=== PATIENT | male | born 1990 | race Caucasian/White ===

== ENCOUNTER 2017-01-26 02:31 | Emergency (ER) | payer BC ==
--- NOTE | 2017-01-26 05:33 | ER ---
ADMIT: 01/26/2017 RM/LOC: ER [facility] MR#: [id number] [address] [id number] JIGNA DONALD [address] [place] [address] Emergency Room Report SEX: M AGE: 26 : 1990 DATE: 01/26/2017 HISTORY OF PRESENT ILLNESS: The patient is a 26-year-old male with no past medical history, came to the ER with chief complaint of abdominal pain. Pain per patient, was vague, it started in the morning yesterday and it was around periumbilical area. Pain per patient is mild to moderate in severity and shifted to the right lower quadrant. Walking and palpation over the area does not increase the pain and coughing also does not increase the pain. The patient had normal bowel movement in consistency, but the quality was small and small and frequency was increased. The patient denies any nausea or vomiting. He also denies any previous similar pain. PHYSICAL EXAMINATION: GENERAL: The patient was afebrile, in no obvious distress or pain lying in bed. HEAD and NECK: Noncontributory. CHEST: Clear to auscultation. HEART: Normal heart sounds. ABDOMEN: Had no tenderness and no rebound. Negative Cano sign, negative McBurney's tenderness, negative Rovsing sign, negative obturator sign, and negative psoas sign. The pain was controlled. LABORATORY DATA: The patient had a WBC of 6 and the lipase was 135, with AST of 16 and ALT of 23. Urine was positive for 2 wbc and 7 rbc. The patient was informed that it could be the beginning of a kidney stone or a moving stone. At this stage, there is no indication for obstructive kidney stone. The 7 rbc could be also false-positive. The patient is stable, can be discharged to home with return precautions, follow up with Dr. Fleming if there are any new symptoms or if there are any concerns. The patient acknowledged he understood the plan and agreed with it. Cullen Pompa MD/ tabitha JOB #: [id number] CC: Cullen Pompa MD, Attending Physician
== END 2017-01-26 04:21 | disposition home or self-care (01) ==
LOC: ER 02:31
DX: R10.9 Unspecified abdominal pain (principal)